=== PATIENT | male | born 1995 | race African-American/Black ===

== ENCOUNTER 2017-03-27 14:39 | Emergency (ER) | payer SELFPAY ==
[~2017-03-27] VITALS: Ht 195.6 cm; Wt 77.3 kg
[2017-03-27] MEDS ORDERED: IBUPROFEN 800 MG TABLET PO ONE (15:45)
[2017-03-27 18:15] VITALS: BP 123/85
== END 2017-03-27 18:38 | disposition home or self-care (01) ==
LOC: EMS 14:44
DX: S92.422A Displaced fracture of distal phalanx of left great toe, initial encounter for closed fracture (principal); W19.XXXA Unspecified fall, initial encounter; Y93.89 Activity, other specified; Y92.89 Other specified places as the place of occurrence of the external cause; Y99.8 Other external cause status
CPT/HCPCS: 99284